=== PATIENT | female | born 1970 | race Caucasian/White ===

== ENCOUNTER → 2018-04-24 | Outpatient (CLI) | payer BC | LOC: FIMAGING 10:43 | PROVIDERS: ATTEND Obstetrics & Gynecology | DX: Z12.31 Encounter for screening mammogram for malignant neoplasm of breast (principal); D25.9 Leiomyoma of uterus, unspecified ==

== ENCOUNTER 2018-06-12 10:43 | Day surgery (SDC) | payer BC ==
[2018-06-12 11:09] LABS: PLATELET COUNT 252 10^3/uL (150-400)
[2018-06-12] MEDS ORDERED: NS 1,000 ML IV ONE ×2 (11:17)
[2018-06-12] MEDS ORDERED: PROMETHAZINE HCL 25 MG/ML INJ IVP ONE (11:17)
--- NOTE | 2018-06-12 11:21 | EDPHY ---
H & P Stated Complaint: RLQ pain since last night, [place] Source: Patient, RN/MD Exam Limitations: No limitations - Personal History LMP (Females 10-55): 8-14 Days Ago Current Tetanus/Diphtheria Vaccine: Yes Current Tetanus Diphtheria and Acellular Pertussis (TDAP): Yes - Medical/Surgical History Hx Asthma: No Hx Chronic Respiratory Disease: No Hx Diabetes: No Hx Cardiac Disease: No Hx Renal Disease: No Hx Cirrhosis: No Hx Alcoholism: No Hx HIV/AIDS: No Hx Splenectomy or Spleen Trauma: No Other PMH: hypothyroid - Social History Smoking Status: Never smoked Time Seen by Provider: 06/12/18 11:17 HPI/ROS: HPI: This is a 48-year-old female who presents with Chief Complaint: RLQ pain since last night, NV Location: Right lower quadrant Quality: Sharp, constant Pain Duration: Started Tuesday but worse last night Signs and Symptoms: no fever, + nausea, + vomiting, no hematemesis, no blood in stool, no abdominal bloating, no diarrhea, no back pain, no urinary symptoms, no vaginal bleeding/discharge, no indigestion, no chest pain, no shortness of breath Timing: Gradually worsened Severity: 11/16 Context: Patient started Tuesday but started to worsen last night. Pain is described as sharp and constant in nature. Pain is nonradiating in nature. Accompanied by nausea and several episodes of vomiting. History of fibroid uterus and simple cyst in the right ovary measuring 3 x 3 x 3 x 4 x 3.3 cm per pelvic ultrasound on 04/24/2018. Last meal was around 8:30 a.m. Last Menstrual period 1-2 weeks ago. Modifying Factors: None Comment: ROS: A comprehensive 10 system review of systems is otherwise negative aside from elements mentioned in the history of present illness. MEDICAL/SURGICAL/SOCIAL HISTORY: Medical history: Generally healthy. Does not take any regular medications. Surgical history: Denies Social history: . Never smoked. Family history noncontributory. CONSTITUTIONAL: Moderate distress, middle-aged white female, pale, awake and alert HEENT: Atraumatic and normocephalic, PERRL, EOMI. Nares patent; no rhinorrhea; no nasal mucosal edema. Tympanic membranes clear. Oropharynx clear, no exudate and moist pink mucosa. Airway patent. No lymphadenopathy. No meningismus. Cardiovascular: Normal S1/S2, regular rate, regular rhythm, without murmur rub or gallop. PULMONARY/CHEST: Symmetrical and nontender. Clear to auscultation bilaterally. Good air movement. No accessory muscle usage. ABDOMEN: Soft, nondistended, severe right lower quadrant tenderness, + rebound , + guarding, no peritoneal signs, no masses or organomegaly. No CVAT. EXTREMITIES: 2/2 pulses, strength 5/5, no deformities, no clubbing, no cyanosis or edema. NEUROLOGICAL: no focal neuro deficits. GCS 15. SKIN: Warm and dry, no erythema. no rash. Good capillary refill. (Shanelle Brown) Constitutional: Initial Vital Signs Temperature (C) 37.2 C 06/12/18 10:45 Heart Rate 100 06/12/18 10:45 Respiratory Rate 16 06/12/18 10:45 Blood Pressure 107/82 H 06/12/18 10:45 O2 Sat (%) 97 06/12/18 10:45 O2 Delivery Mode Room Air Allergies/Adverse Reactions: acetaminophen [From Vicodin] Allergy (Verified 06/12/18 13:16) Vomiting hydrocodone [From Vicodin] Allergy (Verified 06/12/18 13:16) Vomiting Home Medications: Medication Instructions Recorded Cholecalciferol Vit D3 [Vitamin D3 1,000 units PO DAILY 06/12/18 (*)] Compounded T3 1 each PO DAILY 06/12/18 FLUoxetine [Prozac 20 MG (*)] 40 mg PO DAILY 06/12/18 Herbals/Supplements -Info Only 1 ea PO DAILY 06/12/18 Levothyroxine [Synthroid 100 mcg 100 mcg PO DAILY06 06/12/18 (*)] Naproxen Sodium [Aleve 220 MG (*)] 220 mg PO BID PRN 06/12/18 [place]-3 Fatty Acids [Fish Oil 1000 1,000 mg PO DAILY 06/12/18 mg (*)] Tetrahydrozoline 0.05% [Visine (*)] 1 drops EACHEYE DAILY PRN 06/12/18 medroxyPROGESTERone ACETATE 5 mg PO AD 06/12/18 [Provera] oxyCODONE IR [Oxycodone Ir (*)] 5 - 10 mg PO Q4HRS PRN #15 tab 06/12/18 Medical Decision Making ED Course/Re-evaluation: Vital signs reviewed and stable upon arrival. No systemic signs. IV access, laboratory studies, urinalysis, CT abdomen and pelvis scan ordered Given 2 L normal saline, IV promethazine 12.5 mg, IV morphine 4 mg 1216: Laboratory studies reviewed. WBC 18 K with left shift. No signs of anemia/platelet dysfunction/ARSENIO/elevated LFTs/electrolyte imbalance/ pancreatitis. 1220: Urinalysis shows increased ketones and specific gravity secondary to poor oral intake but no signs of infection, no hematuria. 1250: Called by radiologist, Dr. Dukes, advised acute appendicitis measuring 1.8 cm; + inflammation, ? ruptured IV Ceftriaxone and Flagyl given ED decision to consult surgery. Spoke with Dr. Soliman who is at bedside talking to the patient planning to take to the operating room for laparoscopic appendectomy. This patient was seen under the supervision of my secondary supervising physician. I evaluated and cared for this patient with attending. (Shanelle Brown) I did not see this patient while she was in the emergency department. However her care was discussed with the PA while the patient was in the department. I agree with treatment plan and management (Arben Fishman) Differential Diagnosis: Abdominal pain including but not limited to appendicitis, cholecystitis, gastritis and urinary tract infection. (Shanelle Brown) - Data Points Laboratory Results: Laboratory Results 06/12/18 10:55 06/12/18 10:55 Medications Given: Discontinued Medications Bupivacaine HCl (Sensorcaine 0.5% Vial) Confirm Administered Dose 30 ml .ROUTE .STK-MED ONE Stop: 06/12/18 14:23 Last Admin: 06/12/18 15:02 Dose: 10 ml Fentanyl (Sublimaze) 50 mcg IVP ONCE ONE Stop: 06/12/18 13:57 Last Admin: 06/12/18 14:20 Dose: 50 mcg Sodium Chloride (Ns) 1,000 mls @ 0 mls/hr IV EDNOW ONE; Wide Open PRN Reason: Protocol Stop: 06/12/18 11:18 Last Admin: 06/12/18 11:48 Dose: 1,000 mls Sodium Chloride (Ns) 1,000 mls @ 0 mls/hr IV EDNOW ONE; Wide Open PRN Reason: Protocol Stop: 06/12/18 11:18 Last Admin: 06/12/18 11:48 Dose: 1,000 mls Ceftriaxone Sodium 2 gm/ (Sodium Chloride) 50 mls @ 100 mls/hr IV EDNOW ONE PRN Reason: Protocol Stop: 06/12/18 13:16 Last Admin: 06/12/18 14:21 Dose: 50 mls Metronidazole/Sodium Chloride (Flagyl 500 Mg (Premix)) 100 mls @ 100 mls/hr IV EDNOW ONE PRN Reason: Protocol Stop: 06/12/18 13:46 Last Admin: 06/12/18 12:53 Dose: 100 mls Lidocaine HCl (Lidocaine Hcl 1%) Confirm Administered Dose 300 mg .ROUTE .STK- MED ONE Stop: 06/12/18 14:24 Last Admin: 06/12/18 15:02 Dose: 100 mg Midazolam HCl (Versed) 2 mg IVP ONCALL ONE Stop: 06/12/18 13:57 Last Admin: 06/12/18 14:29 Dose: 2 mg Morphine Sulfate (Morphine) 4 mg IVP EDNOW ONE Stop: 06/12/18 11:25 Last Admin: 06/12/18 11:49 Dose: 4 mg Oxycodone HCl (Oxycodone Ir) 5 - 10 mg PO Q4HRS PRN PRN Reason: PACU, Pain Severe Stop: 06/12/18 16:06 Last Admin: 06/12/18 15:59 Dose: 5 mg Promethazine HCl (Phenergan) 12.5 mg IVP EDNOW ONE Stop: 06/12/18 11:18 Last Admin: 06/12/18 11:48 Dose: 12.5 mg Departure - Departure Disposition: To OP Cath/Surgery Clinical Impression: Acute appendicitis with localized peritonitis Qualifiers: Appendicitis gangrene presence: without gangrene Appendicitis perforation presence: with perforation Appendicitis abscess presence: without abscess Qualified Code(s): K35.32 - Acute appendicitis with perforation and localized peritonitis, without abscess Condition: Fair
[2018-06-12] MEDS ORDERED: IOPAMIDOL (ISOVUE-300) 100 ML BTL ONE (11:33)
[2018-06-12] MEDS ORDERED: LR 1,000 ML IV ONE (13:51)
[2018-06-12] MEDS ORDERED: fentaNYL 100 MCG/2 ML INJ IVP ONE (13:56)
[2018-06-12] MEDS ORDERED: MIDAZOLAM 2 MG/2 ML VIAL IVP ONE (13:56)
--- NOTE | 2018-06-12 13:56 | PDANEPAE ---
ANE Past Medical History - Cardiovascular History Hx Hypertension: No Hx Arrhythmias: No Hx Chest Pain: No Hx Coronary Artery / Peripheral Vascular Disease: No Hx CHF / Valvular Disease: No Hx Palpitations: No - Pulmonary History Hx COPD: No Hx Asthma/Reactive Airway Disease: No Hx Recent Upper Respiratory Infection: No Hx Oxygen in Use at Home: No Hx Sleep Apnea: No - Endocrine History Hx Diabetes: No ANE Review of Systems Review of Systems: - Exercise capacity Exercise capacity: >=4 METS ANE Patient History - Allergies Allergies/Adverse Reactions: acetaminophen [From Vicodin] Allergy (Verified 06/12/18 13:16) Vomiting hydrocodone [From Vicodin] Allergy (Verified 06/12/18 13:16) Vomiting - Home Medications Home Medications: Cholecalciferol Vit D3 [Vitamin D3 (*)] 1,000 units PO DAILY 06/12/18 [Last Taken Unknown] Compounded T3 1 each PO DAILY 06/12/18 [Last Taken 06/11/18] FLUoxetine [Prozac 20 MG (*)] 40 mg PO DAILY 06/12/18 [Last Taken 06/11/18] Herbals/Supplements -Info Only 1 ea PO DAILY 06/12/18 [Last Taken Unknown] Levothyroxine [Synthroid 100 mcg (*)] 100 mcg PO DAILY06 06/12/18 [Last Taken ] Naproxen Sodium [Aleve 220 MG (*)] 220 mg PO BID PRN 06/12/18 [Last Taken 17:00] [place]-3 Fatty Acids [Fish Oil 1000 mg (*)] 1,000 mg PO DAILY 06/12/18 [Last Taken Unknown] Tetrahydrozoline 0.05% [Visine (*)] 1 drops EACHEYE DAILY PRN 06/12/18 [Last Taken Unknown] medroxyPROGESTERone ACETATE [Provera 5 mg] 5 mg PO AD 06/12/18 [Last Taken Unknown] - NPO status NPO Since - Liquids (Date): 06/12/18 NPO Since - Liquids (Time): 09:30 NPO Since - Solids (Date): 06/12/18 NPO Since - Solids (Time): 09:30 - Smoking Hx Smoking Status: Never smoked ANE Labs/Vital Signs - Labs Result Diagrams: 06/12/18 10:55 06/12/18 10:55 - Vital Signs Vital Signs: reviewed preoperatively; see RN documention for details Blood Pressure: 110/74 Heart Rate: 72 Respiratory Rate: 16 O2 Sat (%): 98 Height: 165.1 cm Weight: 59.874 kg ANE Physical Exam - Airway Neck exam: FROM Mallampati Score: Class 2 Mouth exam: normal dental/mouth exam - Pulmonary Pulmonary: clear to auscultation - Cardiovascular Cardiovascular: regular rate and rhythym - ASA Status ASA Status: I ANE Anesthesia Plan Anesthesia Plan: general endotracheal anesthesia
[2018-06-12] MEDS ORDERED: fentaNYL 100 MCG/2 ML INJ ONE (13:59)
[2018-06-12] MEDS ORDERED: PROPOFOL 200 MG/20 ML VIAL ONE (14:00)
[2018-06-12] MEDS ORDERED: SUCCINYLCHOLINE CHLORIDE 200 MG/10 ML SYR IVP ONE (14:00)
[2018-06-12] MEDS ORDERED: BUPIVACAINE 0.5% 30 ML SDV ONE (14:22)
[2018-06-12] MEDS ORDERED: LIDOCAINE 1% 300 MG/30 ML SDV ONE (14:23)
--- NOTE | 2018-06-12 14:24 | PDCONSULT ---
[employer] Representative Note: Seen at the request of Dr. Fishman for abdominal pain Chief complaint: Abdominal pain History of present illness: This is a 48-year-old woman complains of 24 hr of increasing abdominal pain nausea and vomiting yesterday and associated chills yesterday. She has never had this type of problem before. She went to see her doctor exam was suspicious for acute appendicitis and she was sent to the emergency room for evaluation and management. CT scan demonstrates a large appendix with [place] [id number]. Past medical history: Hypothyroidism Past surgical history: Tonsillectomy, tubal ligation, breast augmentation. Medications at home: Cholecalciferol Vit D3 [Vitamin D3 (*)] 1,000 units PO DAILY 06/12/18 [Last Taken Unknown] Compounded T3 1 each PO DAILY 06/12/18 [Last Taken 06/11/18] FLUoxetine [Prozac 20 MG (*)] 40 mg PO DAILY 06/12/18 [Last Taken 06/11/18] Herbals/Supplements -Info Only 1 ea PO DAILY 06/12/18 [Last Taken Unknown] Levothyroxine [Synthroid 100 mcg (*)] 100 mcg PO DAILY06 06/12/18 [Last Taken ] Naproxen Sodium [Aleve 220 MG (*)] 220 mg PO BID PRN 06/12/18 [Last Taken 17:00] [place]-3 Fatty Acids [Fish Oil 1000 mg (*)] 1,000 mg PO DAILY 06/12/18 [Last Taken Unknown] Tetrahydrozoline 0.05% [Visine (*)] 1 drops EACHEYE DAILY PRN 06/12/18 [Last Taken Unknown] medroxyPROGESTERone ACETATE [Provera 5 mg] 5 mg PO AD 06/12/18 [Last Taken Unknown] Allergies: Allergy/AdvReac Type Severity Reaction Status Date / Time acetaminophen [From Vicodin] Allergy Vomiting Verified 06/12/18 13:16 hydrocodone [From Vicodin] Allergy Vomiting Verified 06/12/18 13:16 Social history: Denies drug or tobacco use. Occasional alcohol. Lives at home with her and 1 son. Review of systems: 12 point review otherwise negative except for above problem Temp Pulse Resp BP Pulse Ox 36.8 C 72 16 110/74 98 06/12/18 14:15 06/12/18 14:15 06/12/18 14:15 06/12/18 14:15 06/12/18 14:15 Alert oriented in some distress due to abdominal pain Sclerae anicteric Extraocular motions intact Oropharynx moist Trachea midline No JVD no thyromegaly no supraclavicular or cervical adenopathy Regular rate and rhythm Clear to auscultation Abdomen soft nondistended. No hepatosplenomegaly. Right lower quadrant abdominal tenderness at McBurney's point. Positive rebound. No significant midline scarring. Extremities without edema. 2+ over 2+ dorsalis pedis and radial pulses. Normal affect and mood. Skin normal turgor and tone 06/12/18 10:55 06/12/18 10:55 Total Bilirubin 0.9 mg/dL (0.1-1.4) 06/12/18 Unknown Conjugated Bilirubin 0.3 mg/dL (0.0-0.5) 06/12/18 Unknown Unconjugated Bilirubin 0.6 mg/dL (0.0-1.1) 06/12/18 Unknown AST 22 IU/L (14-46) 06/12/18 Unknown ALT 28 IU/L (9-52) 06/12/18 Unknown Imaging Impressions Abdomen CT 06/12/18 11:24 Impression: 1. Acute appendicitis with possible rupture, without evidence of abscess. 2. Indeterminate 1.7 cm hepatic hypodensity. MR abdomen with contrast is recommended for further evaluation unless this has been previously characterized at outside institution. 3. Additional findings as above. Findings discussed with Shanelle Brown on 06/12/2018 at 12:43. Reviewed with the patient on PACS agree with findings. Impression: Acute appendicitis Hypothyroidism Katie menopausal Plan: Laparoscopic appendectomy. The risks benefits and alternatives to surgery have been clearly outlined. All questions were answered. Verbal confirmation of understanding was obtained prior to written consent. Ceftriaxone and Flagyl given for antibiosis. Anticipate less than 24 hr hospital stay unless ruptured.
--- NOTE | 2018-06-12 14:32 | POSTOPPROG ---
Post Op Note Date of Operation: 06/12/18 Surgeon: Nabeel Soliman Loader Engineer: Juan Delgado Anesthesiologist: Dr Virk Anesthesia: GET(General Endotracheal) Pre-op Diagnosis: Acute appendicitis Post-op Diagnosis: same Procedure: Laparoscopic appendectomy Findings: Acute appendicitis Inf/Abcess present in the surg proc area at time of surgery?: Yes Depth: Organ Space EBL: Minimal Specimen(s): Appendix to permanent pathology
[2018-06-12] MEDS ORDERED: DEXAMETHASONE 4 MG/ML VIAL ONE (14:42)
[2018-06-12] MEDS ORDERED: KETOROLAC 30 MG/1 ML SDV ONE (14:43)
[2018-06-12] MEDS ORDERED: ONDANSETRON 4 MG/2 ML VIAL ONE (14:43)
[2018-06-12] MEDS ORDERED: ROCURONIUM 50 MG/5 ML VIAL ONE (14:47)
[2018-06-12] MEDS ORDERED: NEOSTIGMINE METHYLSULFATE 10 MG/10 ML MDV ONE (15:01)
[2018-06-12] MEDS ORDERED: GLYCOPYRROLATE 0.2 MG/1 ML VIAL ONE (15:01)
[2018-06-12] MEDS ORDERED: ACETAMINOPHEN 500 MG TAB PO PRN (15:05)
[2018-06-12] MEDS ORDERED: LR 500 ML IV PRN (15:05)
[2018-06-12] MEDS ORDERED: HYDROmorphONE/DILAUDID 1 MG/ML INJ IVP PRN (15:05)
[2018-06-12] MEDS ORDERED: ONDANSETRON 4 MG/2 ML VIAL IVP PRN (15:05)
[2018-06-12] MEDS ORDERED: ALBUTEROL 3 ML DEYVIAL IH PRN (15:05)
[2018-06-12] MEDS ORDERED: oxyCODONE IR 5 MG TAB PO PRN (15:05)
[2018-06-12] MEDS ORDERED: NALOXONE HCL 0.4 MG/ML INJ IVP PRN (15:05)
[2018-06-12] MEDS ORDERED: METOCLOPRAMIDE 10 MG/2 ML VIAL IVP PRN (15:05)
[2018-06-12] MEDS ORDERED: MEPERIDINE 25 MG/0.5 ML AMP IVP PRN (15:05)
[2018-06-12] MEDS ORDERED: fentaNYL 100 MCG/2 ML INJ IVP PRN (15:05)
[2018-06-12] MEDS ORDERED: PROMETHAZINE HCL 25 MG/ML INJ IVP PRN (15:05)
[2018-06-12] MEDS ORDERED: oxyCODONE IR 5 MG TAB ONE (15:58)
--- NOTE | 2018-06-12 16:03 | SUROPNOTE ---
[facility] Operative Report - Surgery Date of surgery: 06/12/2018 Indications for surgery: This is a 48-year-old patient presents to the hospital in acute distress. Workup found leukocytosis of 18,000 and imaging revealed acute appendicitis with appendix up to 1.7 cm with multiple fecaliths. Risks benefits and alternatives to surgery have been outlined clearly with the patient. All questions were addressed. Ceftriaxone Flagyl given preoperatively Preop diagnosis: Acute appendicitis Postop diagnosis: Same Procedure: Laparoscopic appendectomy Surgeon: Dr. Soliman Settlement Worker: MARILIA Rivero Anesthesiologist: Dr. Virk General endotracheal anesthesia Specimen: Appendix permanent pathology Fluid given 500 cc crystalloid EBL 10 mL Complications: None Details of the procedure: The patient was brought to the operating room after induction of endotracheal anesthesia in a supine position her abdomen is prepped chlorhexidine and draped sterilely. Time-out procedure was then performed according to institutional standards. Local anesthetic is infused in skin and subcutaneous tissue of the trocar sites. Open supraumbilical trocar placement is performed in the standard fashion. The abdomen is insufflated to 15 torr with carbon dioxide and working trocars were placed in the lower midline under direct visualization. Right-sided tilt is used to facilitate visualization of the appendix. The appendix is somewhat retrocecal with indurated mesentery and extremely dilated. The mesentery is controlled with bipolar (LigaSure) energy and the appendix is divided at the base of the cecum using an Endo-BUTCH stapler. Hemostasis assured. There is no sign of rupture or gross purulence within the abdomen. Working trocars are removed the appendix is removed within an Endo -Catch bag. Hemostasis is assured. After deflating the abdomen the fascia is reapproximated using 0 Vicryl. All ports were reapproximated the skin level using 4 Monocryl. Dermabond is applied. The patient awakened extubated and taken to the recovery room in stable condition no immediate complications.
[2018-06-12 16:40] VITALS: BP 94/61
--- NOTE | 2018-06-13 08:05 | POSTANESTH ---
Post Anesthetic Evaluation Cardiovascular Status: Normal, Stable Respiratory Status: Normal, Stable Level of Consciousness/Mental Status: Can Participate in Eval Pain Control: Adequate, Prn Tx Ordered Nausea/Vomiting Control: Adequate, Prn Tx Ordered Complications Possibly Related to Anesthesia: None Noted
== END 2018-06-12 18:00 | disposition home or self-care (01) ==
LOC: UNDOADMOB 12:49 → FSGY 13:41 → UNDODISOB 16:35 → FSGY 18:00
PROVIDERS: ATTEND Surgery
PROC: 0DTJ4ZZ Resection of Appendix, Percutaneous Endoscopic Approach (ICD-10-PCS; principal; 2018-06-12 15:15)
DX: K35.80 Unspecified acute appendicitis (principal); E86.9 Volume depletion, unspecified
CPT/HCPCS: J0330; J0696; J1100; J1885; J2250; J2270; J2405; J2550; J2704; J3010; Q9967